=== PATIENT | male | born 2000 | race Caucasian/White ===

== ENCOUNTER 2021-02-21 09:01 | Emergency (ER) | payer OTHER ==
[~2021-02-21] VITALS: Ht 172.7 cm; Wt 59.0 kg
[2021-02-21 09:05] VITALS: BP 123/69
--- NOTE | 2021-02-21 09:11 | NUR ---
16 Y/O FEMALE BIB MOTHER C/O ABDOMINAL PAIN 03/29 DESCRIBES SHARP INTERMITTENT RADIATES TO LLQ. PT STATES SHE HAS BEGAN TO HAVE N/V X1DAY TODAY VOMITED TODAY ONE TIME. ABDOMEN IS SOFT, FLAT, NON-TENDER, BOWEL SOUNDS ACTIVE X4, LAST BM 02/19/21. LMP 02/12/21. PT DENIES FEVER/CHILLS. PT DENIES DYSURIA/DISCHARGE. DENIES PMH NKA
--- NOTE | 2021-02-21 09:11 | NUR ---
PATIENT AMBULATED TO BED 12.
--- NOTE | 2021-02-21 09:15 | NUR ---
Dr. Pak at pt bedside for further evaluation.
--- NOTE | 2021-02-21 09:21 | NUR ---
Pt provided H20 for US prep per Dr. Pasha velasquez. Instructed to not privide UA sample at this time.
[2021-02-21 09:34] LABS: BASOPHILS % (AUTO) 0.2 % (0.0-2.0); EOSINOPHILS # (AUTO) 0.1 K/uL (0-0.4); EOSINOPHILS % (AUTO) 1.4 % (0.0-4.0); HEMATOCRIT 45.9 % (36-52); HEMOGLOBIN 15.6 g/dL (12.0-18.0); LYMPHOCYTES # (AUTO) 1.3 K/uL (2.0-11.5); LYMPHOCYTES % (AUTO) 14.5 % (20.5-51.1); MEAN CORPUSCULAR HEMOGLOBIN 31 pg (27-31); MEAN CORPUSCULAR HGB CONC 34 g/dL (33-37); MEAN CORPUSCULAR VOLUME 91.8 fL (80-94); MONOCYTES # (AUTO) 0.8 K/uL (0.8-1.0); MONOCYTES % (AUTO) 9.1 % (1.7-9.3); NEUTROPHILS # (AUTO) 6.8 K/uL (1.8-7.7); NEUTROPHILS % (AUTO) 74.8 % (42.2-75.2); PLATELET COUNT (AUTO) 156 K/uL (140-450); RED CELL DISTRIBUTION WIDTH 12.3 % (11.6-13.7); WHITE BLOOD COUNT (AUTO) 9.1 K/uL (4.5-11.0)
[2021-02-21 09:48] LABS: ALBUMIN 4.2 g/dL (3.4-5.0); ANION GAP 8.8 (8-16); CARBON DIOXIDE 33.1 mmol/L (21-32); POTASSIUM 4.9 mmol/L (3.5-5.1); TOTAL BILIRUBIN 0.6 mg/dL (0.0-1.0)
[2021-02-21] MEDS: ONDANSETRON 4 MG/2 ML VIAL IVP ONE (09:53)
[2021-02-21] MEDS: KETOROLAC 30 MG/ML VIAL IVP ONE (09:53)
[2021-02-21] MEDS: NACL 0.9% 1,000 ML IV SCH (09:54)
[2021-02-21] MEDS ORDERED: ONDA-24 PO (10:54)
[2021-02-21] MEDS ORDERED: FAMO-92 PO (10:54)
[2021-02-21 11:00] VITALS: BP 123/69
--- NOTE | 2021-02-21 11:01 | NUR ---
Patient discharged with v/s stable. Written and verbal after care instructions given and explained. Patient alert, oriented and verbalized understanding of instructions. Ambulatory with steady gait. All questions addressed prior to discharge. ID band removed. Patient advised to follow up with PMD. Rx of PEPCID 40MG PO DAILY FOR GASTRITIS, AND ZOFRAN 4MG PO Q8H PRN N/V given. Patient educated on indication of medication including possible reaction and side effects. Opportunity to ask questions provided and answered.
== END 2021-02-21 11:01 | disposition home or self-care (01) ==
LOC: MED 09:01
DX: R10.11 Right upper quadrant pain (principal); R05 Cough; F12.90 Cannabis use, unspecified, uncomplicated; Z79.899 Other long term (current) drug therapy
CPT/HCPCS: 36415; 76705; 80053; 81002; 83690; 85025; 96361; 96374; 96375; 99284; J1885; J2405; J7030